=== PATIENT | female | born 1955 | race Caucasian/White ===

== ENCOUNTER 2018-01-07 20:08 | Observation (INO) | payer OTHER ==
--- NOTE | 2018-01-07 20:20 | CPEKG ---
Heart Rate: 59 RR Interval: 1017 P-R Interval: 156 QRSD Interval: 90 QT Interval: 444 QTC Interval: 440 P [place]: 61 QRS [place]: 69 T Wave [place]: 55 EKG Severity - ABNORMAL ECG - EKG Impression: SINUS RHYTHM EKG Impression: PROBABLE LEFT VENTRICULAR HYPERTROPHY Electronically Signed By: Ana Garcia 07-Jan-2018 23:06:57
[2018-01-07] MEDS ORDERED: ASPIRIN 81 MG CHEWABLE TAB ONE (20:26)
[2018-01-07] MEDS ORDERED: ASPIRIN 81 MG CHEWABLE TAB PO ONE (20:27)
--- NOTE | 2018-01-07 20:30 | EDPHY ---
H & P Time Seen by Provider: 01/07/18 20:45 HPI/ROS: Chief complaint: Chest pain History of present illness: This is an otherwise healthy 62-year-old female who presents to the emergency department for chest pain. She was in her usual state of health today. She went out to the store with her and upon returning home developed the discomfort. She describes a squeezing pain under her sternum. The pain radiated to her back. She does report she had some numbness in her hands, left greater than right. Her reports she became pale and sweaty. Symptoms resolved after about 10 min. Now she states she feels lightheaded and "out of it." She denies specific precipitating factors. She denies any alleviating or aggravating factors. No other associated signs or symptoms. No history of cardiovascular disease. Review of systems: A 10 point review of systems was obtained and other than described above was negative (Jamie Smart) - Physical Exam Exam: General Appearance: Alert, nontoxic. Eyes: Pupils equal and round no pallor or injection. ENT, Mouth: Mucous membranes moist. Respiratory: There are no retractions, lungs are clear to auscultation. Cardiovascular: Regular rate and rhythm. Radial pulses 2+ bilaterally. Gastrointestinal: Abdomen is soft and non tender, no masses, bowel sounds normal. Neurological: Alert and oriented x4. Strength and sensation intact and symmetrical. Skin: Warm and dry, no rashes. Musculoskeletal: Neck is supple non tender. Extremities are symmetrical, full range of motion. Psychiatric: Patient is oriented X 3, there is no agitation. (Jamie Smart) Constitutional: Initial Vital Signs Temperature (C) 36.5 C 01/07/18 20:29 Heart Rate 62 01/07/18 20:29 Respiratory Rate 16 01/07/18 20:29 Blood Pressure 130/69 H 01/07/18 20:29 O2 Sat (%) 97 01/07/18 20:29 O2 Delivery Mode Room Air Allergies/Adverse Reactions: No Known Allergies Allergy (Unverified 01/07/18 20:32) Home Medications: Medication Instructions Recorded Cholecalciferol Vit D3 [Vitamin D3 2,000 units PO DAILY 01/07/18 (*)] Herbals/Supplements -Info Only 1 ea PO DAILY 01/07/18 Ibuprofen [Motrin (*)] 200 - 400 mg PO DAILY PRN 01/07/18 [place]-3 Fatty Acids [Fish Oil 1000 1,000 mg PO DAILY 01/07/18 mg (*)] Medical Decision Making - Diagnostics Imaging: Discussed imaging studies w/ scallop raker Radiologist - Diagnostics Imaging Results: Imaging Impressions Chest X-Ray 01/07/18 20:16 Impression: 1. Hazy densities right apex and inferior aspect left upper lobe. This could just represent overlapping soft tissues. However, consider follow-up chest x- ray to evaluate for possible resolution. If findings are persistent then CT chest imaging may be worthwhile. Findings discussed with RAFAEL Sandoval at 22:01 hour, 01/07/2018. ED Course/Re-evaluation: Patient is seen in conjunction with my secondary supervising physician Dr. Ana Garcia. Patient presents for chest pain. She is nontoxic. Chest pain has resolved. However she feels slightly dizzy. She has a benign physical exam. She is given 325 mg of aspirin. EKG shows T-wave inversion in V1 and V2. No previous EKGs to compare to. Blood studies including troponin unremarkable. Chest x-ray is questionable for hazy infiltrates although patient has no symptoms consistent with pneumonia. Patient will be admitted for further evaluation and care. (Jamie Smart) Differential Diagnosis: Included but limited to ACS, cardiac dysrhythmia, pulmonary infections, esophageal spasms, unlikely PE or great vessel disease (Jamie Smart) Other Provider: I have evaluated and participated in the management of this patient. My co- signature indicates that I have reviewed this chart and that I agree with the findings and the plan of care as documented. My personal history and physical findings include: 62-year-old female who had a 10 15 min episode of severe chest pain. It occurred while she was standing at the kitchen counter. She reports pain that was substernal and radiated throughout her chest, into the back. It caused her to double over. She felt short of breath and became diaphoretic. She had associated nausea. She also reports some numbness in the left hand with perhaps some numbness in the right hand also. She is currently pain-free. She has no personal cardiac risk factors and no family history of coronary artery disease. I have reviewed her EKG, laboratory studies, chest x- ray. Her HEART score is 4, putting her at moderate risk. On examination she is awake and alert. Lungs are clear. Heart is regular rate and rhythm without murmur, rub, or gallop. No jugular venous distension. Abdomen is soft and nontender. No lower extremity edema. I discussed my impressions with the patient and her . It is not clear whether not this episode was cardiac in origin. She has no history of GERD. She agrees that the prudent approach is to remain hospitalized overnight for continued evaluation, cardiac monitoring , and additional risk stratification as warranted. (Ana Garcia) - Data Points Laboratory Results: Laboratory Results 01/07/18 20:20 01/07/18 20:20 01/07/18 01/07/18 01/07/18 20:33 20:20 20:20 WBC 5.58 10^3/uL 10^3/uL (3.80-9.50) RBC 4.66 10^6/uL 10^6/uL (4.18-5.33) Hgb 14.8 g/dL g/dL (12.6-16.3) Hct 42.6 % % (38.0-47.0) MCV 91.4 fL fL (81.5-99.8) MCH 31.8 pg pg (27.9-34.1) MCHC 34.7 g/dL g/dL (32.4-36.7) RDW 12.5 % % (11.5-15.2) Plt Count 218 10^3/uL 10^3/uL (150-400) MPV 9.5 fL fL (8.7-11.7) Neut % (Auto) 42.1 % % (39.3-74.2) Lymph % (Auto) 48.6 % H % (15.0-45.0) [place] % (Auto) 7.2 % % (4.5-13.0) Eos % (Auto) 1.4 % % (0.6-7.6) Baso % (Auto) 0.5 % % (0.3-1.7) Nucleat RBC Rel Count 0.0 % % (0.0-0.2) Absolute Neuts (auto) 2.35 10^3/uL 10^3/uL (1.70-6.50) Absolute Lymphs (auto) 2.71 10^3/uL 10^3/uL (1.00-3.00) Absolute Monos (auto) 0.40 10^3/uL 10^3/uL (0.30-0.80) Absolute Eos (auto) 0.08 10^3/uL 10^3/uL (0.03-0.40) Absolute Basos (auto) 0.03 10^3/uL 10^3/uL (0.02-0.10) Absolute Nucleated RBC 0.00 10^3/uL 10^3/uL (0-0.01) Immature Gran % 0.2 % % (0.0-1.1) Immature Gran # 0.01 10^3/uL 10^3/uL (0.00-0.10) Sodium 140 mEq/L mEq/L (135-145) Potassium 3.6 mEq/L mEq/L (3.3-5.0) Chloride 102 mEq/L mEq/L (97-110) Carbon Dioxide 28 mEq/l mEq/l (22-31) Anion Gap 10 mEq/L mEq/L (8-16) BUN 11 mg/dL mg/dL (7-23) Creatinine 0.7 mg/dL mg/dL (0.6-1.0) Estimated GFR > 60 Glucose 104 mg/dL H mg/dL (70-100) Calcium 9.2 mg/dL mg/dL (8.5-10.4) POC Troponin I 0.01 ng/mL ng/mL (0.00-0.08) Medications Given: Discontinued Medications Aspirin (Aspirin) 324 mg PO EDNOW ONE Stop: 01/07/18 20:28 Last Admin: 01/07/18 20:27 Dose: 324 mg Point of Care Test Results: Chemistry 01/07/18 20:33 POC Troponin I 0.01 ng/mL ng/mL (0.00-0.08) Departure - Departure Disposition: [facility] Inpatient Acute Clinical Impression: Chest pain Qualifiers: Chest pain type: unspecified Qualified Code(s): R07.9 - Chest pain, unspecified Condition: Good
[2018-01-07 20:33] LABS: PLATELET COUNT 218 10^3/uL (150-400)
--- NOTE | 2018-01-07 20:49 | CPEKG ---
Heart Rate: 54 RR Interval: 1111 P-R Interval: 148 QRSD Interval: 76 QT Interval: 448 QTC Interval: 425 P [place]: 65 QRS [place]: 70 T Wave [place]: 63 EKG Severity - ABNORMAL ECG - EKG Impression: SINUS RHYTHM EKG Impression: CONSIDER LEFT VENTRICULAR HYPERTROPHY Electronically Signed By: Ana Garcia 07-Jan-2018 23:07:10
[2018-01-07] MEDS ORDERED: ONDANSETRON 4 MG/2 ML VIAL IVP PRN (21:08)
[2018-01-07] MEDS ORDERED: ONDANSETRON DISINTEGRATING 4 MG TAB PO PRN (21:08)
[2018-01-07] MEDS ORDERED: ACETAMINOPHEN 325 MG TAB PO PRN (21:08)
[2018-01-07] MEDS ORDERED: MAG HYDROX/AL HYDROX/SIMETH 30 ML UDCUP PO PRN (22:07)
[2018-01-07] MEDS ORDERED: LIDOCAINE 2% VISCOUS 15 ML UDCUP PO PRN (22:07)
[2018-01-07] MEDS ORDERED: HYOSCYAMINE SULFATE 0.125 MG TAB PO PRN (22:07)
--- NOTE | 2018-01-07 22:35 | PDGENHP ---
History and Physical - Chief Complaint chest pain - History of Present Illness 62 yo female who is otherwise healthy presents to ED with chest pain. She was standing in her kitchen after having tamales and green chile for dinner and developed sudden onset substernal chest pressure. "[place] like someone was standing on her chest". She had associated tingling in her hands. No SOB, but noted she had to work to slow down her breathing. No radiation or nausea. She did feel a bit diaphoretic. She also notes a significant "coughing fit" today in which some food went down the wrong pipe. She just did a 40 mile bike ride at [facility], over [place] and had no chest pain or unusual dyspnea symptoms. She also rides laps at [facility] frequently without symptoms. She has no h/o htn, hld, DM and no family h/o CAD. In the ED, she had some non-specific changes on her EKG. Troponin is negative. She is chest pain free at this time. She is admitted for further evaluation. History Information - Allergies/Home Medication List Allergies/Adverse Reactions: No Known Allergies Allergy (Unverified 01/07/18 20:32) Home Medications: Cholecalciferol Vit D3 [Vitamin D3 (*)] 2,000 units PO DAILY 01/07/18 [Last Taken 01/07/18] Herbals/Supplements -Info Only 1 ea PO DAILY 01/07/18 [Last Taken 01/06/18] Ibuprofen [Motrin (*)] 200 - 400 mg PO DAILY PRN 01/07/18 [Last Taken 01/04/18] [place]-3 Fatty Acids [Fish Oil 1000 mg (*)] 1,000 mg PO DAILY 01/07/18 [Last Taken 01/07/18] I have personally reviewed and updated: family history, medical history, social history, surgical history - Past Medical History no pertinent PMH - Surgical History Reports: no pertinent surgical hx - Family History Positive for: stroke Additional family history: dad had a stroke - Social History Smoking Status: Never smoked Alcohol Use: None Drug Use: None Additional social history: , at bedside. Very active. Review of Systems Review of Systems: ROS: 10pt was reviewed & negative except for what was stated in HPI & below Physical Exam Physical Exam: Temp Pulse Resp BP Pulse Ox 36.9 C 54 L 16 135/82 H 97 01/07/18 21:57 01/07/18 21:57 01/07/18 21:57 01/07/18 21:57 01/07/18 21:57 Constitutional: no apparent distress Eyes: PERRL Ears, Nose, Mouth, Throat: moist mucous membranes Cardiovascular: regular rate and rhythym Respiratory: no respiratory distress, clear to auscultation Gastrointestinal: normoactive bowel sounds, soft, non-tender abdomen Skin: warm Musculoskeletal: full muscle strength Neurologic: AAOx3 Psychiatric: interacting appropriately Lab Data & Imaging Review 01/07/18 20:20 01/07/18 20:20 WBC 5.58 10^3/uL (3.80-9.50) 01/07/18 20:20 RBC 4.66 10^6/uL (4.18-5.33) 01/07/18 20:20 Hgb 14.8 g/dL (12.6-16.3) 01/07/18 20:20 Hct 42.6 % (38.0-47.0) 01/07/18 20:20 MCV 91.4 fL (81.5-99.8) 01/07/18 20:20 MCH 31.8 pg (27.9-34.1) 01/07/18 20:20 MCHC 34.7 g/dL (32.4-36.7) 01/07/18 20:20 RDW 12.5 % (11.5-15.2) 01/07/18 20:20 Plt Count 218 10^3/uL (150-400) 01/07/18 20:20 MPV 9.5 fL (8.7-11.7) 01/07/18 20:20 Neut % (Auto) 42.1 % (39.3-74.2) 01/07/18 20:20 Lymph % (Auto) 48.6 % (15.0-45.0) H 01/07/18 20:20 [place] % (Auto) 7.2 % (4.5-13.0) 01/07/18 20:20 Eos % (Auto) 1.4 % (0.6-7.6) 01/07/18 20:20 Baso % (Auto) 0.5 % (0.3-1.7) 01/07/18 20:20 Nucleat RBC Rel Count 0.0 % (0.0-0.2) 01/07/18 20:20 Absolute Neuts (auto) 2.35 10^3/uL (1.70-6.50) 01/07/18 20:20 Absolute Lymphs (auto) 2.71 10^3/uL (1.00-3.00) 01/07/18 20:20 Absolute Monos (auto) 0.40 10^3/uL (0.30-0.80) 01/07/18 20:20 Absolute Eos (auto) 0.08 10^3/uL (0.03-0.40) 01/07/18 20:20 Absolute Basos (auto) 0.03 10^3/uL (0.02-0.10) 01/07/18 20:20 Absolute Nucleated RBC 0.00 10^3/uL (0-0.01) 01/07/18 20:20 Immature Gran % 0.2 % (0.0-1.1) 01/07/18 20:20 Immature Gran # 0.01 10^3/uL (0.00-0.10) 01/07/18 20:20 Sodium 140 mEq/L (135-145) 01/07/18 20:20 Potassium 3.6 mEq/L (3.3-5.0) 01/07/18 20:20 Chloride 102 mEq/L (97-110) 01/07/18 20:20 Carbon Dioxide 28 mEq/l (22-31) 01/07/18 20:20 Anion Gap 10 mEq/L (8-16) 01/07/18 20:20 BUN 11 mg/dL (7-23) 01/07/18 20:20 Creatinine 0.7 mg/dL (0.6-1.0) 01/07/18 20:20 Estimated GFR > 60 01/07/18 20:20 Glucose 104 mg/dL (70-100) H 01/07/18 20:20 Calcium 9.2 mg/dL (8.5-10.4) 01/07/18 20:20 POC Troponin I 0.01 ng/mL (0.00-0.08) 01/07/18 20:33 Visualized and Interpreted Chest x-ray results: Yes Chest X-Ray results: other (hazy opacities ) Visualized and Interpreted EKG results: Yes EKG Interpretation: Positive for: other (mild ME depression, non-specific ST changes) Assessment & Plan Assessment: Chest pain (Acute) - She has no cardiac risk factors and HEART score is low risk. EKG could be suggestive of pericarditis with ME depression and non- specific ST changes. No recent viral illness. Also consider GI source vs possible aspiration pneumonitis given coughing / aspiration event today. -trend trop -repeat ekg in am -if rules out for cardiac issues, would be candidate for outpt stress testing with low HEART score -will give ibuprofen for possible pericarditis, along with BID pepcid as I acknowledge nsaid's could worsen symptoms if GI is source of pain -check echo to r/o pericardial effusion given possibility of pericarditis -consider cardiology consult in am Abnormal CXR - hazy opacities on CXR could be aspiration related given hx, no fevers or signs of PNA -check PCT in am -repeat CXR in am Full code Dispo - obs
[2018-01-07] MEDS: IBUPROFEN 600 MG TAB PO SCH (23:36)
[2018-01-07] MEDS: FAMOTIDINE 20 MG TAB PO SCH (23:36)
[2018-01-08 07:57] VITALS: BP 120/75
[2018-01-08] MEDS: FAMOTIDINE 20 MG TAB PO SCH (09:13)
[2018-01-08] MEDS: IBUPROFEN 600 MG TAB PO SCH (09:13)
--- NOTE | 2018-01-08 10:18 | ASMTCASEMG ---
Living Arrangements What is your living Answers: With Spouse arrangement? Who do you live with? Type Of Residence What kind of residence do Answers: House you live in? Discharge Plan Comments Coordination Status Comments Notes: Pt is a 62 y/o female admitted for chest pain. Pt is relatively healthy and active. Pt should not have any d/c needs. No therapies ordered at this time. CM available for changes. Plan: Independent Date Signed: 01/08/2018 10:17 AM Electronically Signed By:FILIPPO Zamora
--- NOTE | 2018-01-08 14:03 | ECHO ---
[email or web address] [address] [address] Main: [phone] Fax: Transthoracic Echocardiogram Name: MADDY GUZMAN MR#: [id number] Study Date: 01/08/2018 Study Time: 08:01 AM Date of : 1955 Age: 62 year(s) Height: 165.1 cm (65 in.) Weight: 54.43 kg (120 lb.) BSA: 1.59 m2 Gender: Female Examination: Echo Indication: Possible pericarditis/eval for pleural effusion Image Quality: Contrast: Requested by: Kelly Merritt BP: 120 mmHg/75 mmHg Heart Rate: Rhythm: Indication: Possible pericarditis/eval for pleural effusion Procedure Staff Scholastic Aptitude Test Grader: Gabriela Onofre RDCS Reading Physician: David Shipman MD Requesting Provider: Conclusions: Normal size left ventricle. No LV hypertrophy. Normal global systolic LV function. The ejection fraction is estimated to be 65-70 %. No regional wall motion abnormality. Trivial mitral valve regurgitation. The aortic valve is tri-leaflet. Mild tricuspid regurgitation is present. The pulmonary artery pressure is normal. No previous Measurements: Chambers Valvular Assessment AV/MV Valvular Assessment TV/PV Normal Normal Normal Name Value Range Name Value Range Name Value Range Ao Joie (MM): 3.1 cm (2.2 cm-3.7 AV meanP mmHg ( - ) TR Vmax: 2.31 mm/s ( - ) cm) MV E Vmax: 0.92 m/s ( - ) TR PGmax: 21 mmHg ( - ) IVSd (2D): 0.6 cm (0.6 cm-1.1 MV A Vmax: 0.76 m/s ( - ) syst. PAP: 26 mmHg ( - ) cm) MV E/A: 1.21 ( - ) LVDd (2D): 4.1 cm (3.9 cm-5.3 cm) LVDs (2D): 2.5 cm (2.1 cm-4 cm) LVPWd (2D): 0.7 cm ( - ) LVEF (MOD4): 74 % (>=55 %) EF Range: 65-70 % Continued Measurements: Chambers Valvular Assessment AV/MV Valvular Assessment TV/PV Patient: MADDY GUZMAN Study Date: 01/08/2018 Page 1 of 2 08:01 AM Name Value Name Value Name Value LADs: 3.0 cm MV E' Septal: 0.06 m/s CVP (est.): 5 mmHg LADs Lon.8 cm MV E/E' Septal: 15.50 LA Area: 11.4 cm2 MV E/E' Lateral: 9.90 Additional Vessels Name Value Ao Ascendin.9 cm Findings: Left Ventricle: Normal size left ventricle. No LV hypertrophy. Normal global systolic LV function. The ejection fraction is estimated to be 65-70 %. No regional wall motion abnormality. Right Ventricle: Normal size right ventricle. Left Atrium: The left atrium is normal in size. Right Atrium: The right atrium is normal in size. Mitral Valve: The mitral valve is normal in appearance and function. Trivial mitral valve regurgitation. Aortic Valve: The aortic valve is normal in appearance and function. The aortic valve is tri-leaflet. Tricuspid Valve: The tricuspid valve is normal in appearance and function. Mild tricuspid regurgitation is present. The pulmonary artery pressure is normal. Pulmonic Valve: The pulmonic valve is normal in appearance and function. Aorta: The aorta is normal. Pericardium: No pericardial effusion. (No Signature Object) Patient: MADDY GUZMAN Study Date: 01/08/2018 Page 2 of 2 08:01 AM [id number]
== END 2018-01-08 15:41 | disposition home or self-care (01) ==
LOC: F2W 22:20
PROVIDERS: ADMIT Hospitalist; ATTEND Internal Medicine
DX: R07.9 Chest pain, unspecified (principal); R91.8 Other nonspecific abnormal finding of lung field; Z82.3 Family history of stroke
CPT/HCPCS: 84484-PO; G0378

== ENCOUNTER → 2018-05-13 | Outpatient (CLI) | payer OTHER | LOC: BMCIMAGING 07:21 | PROVIDERS: ATTEND Family Medicine | DX: Z12.31 Encounter for screening mammogram for malignant neoplasm of breast (principal) ==

== ENCOUNTER → 2018-05-14 | Outpatient (CLI) | payer OTHER | LOC: BMCIMAGING 14:55 | PROVIDERS: ATTEND Family Medicine | DX: Z13.820 Encounter for screening for osteoporosis (principal); M81.0 Age-related osteoporosis without current pathological fracture; Z78.0 Asymptomatic menopausal state; Z96.641 Presence of right artificial hip joint ==